=== PATIENT | male | born 1950 | race African-American/Black ===

== ENCOUNTER 2017-04-11 02:50 | Emergency (ER) | payer OTHER ==
[~2017-04-11] VITALS: Ht 182.9 cm; Wt 84.4 kg
[~2017-04-11 02:50] MED LIST: CHLO25TA PO; CYAN100028 PO; INSU100C5 SQ-INSULIN; INSU100I18 SC; LISI40TA PO; METF500T4 PO; TAMS0.4C2 PO; WARF5TAB PO
[2017-04-11] MEDS ORDERED: SODIUM CHLORIDE 0.9% 1,000ML IVBOLUS ONE (03:30)
[2017-04-11] MEDS ORDERED: ONDANSETRON 2MG/ML, 2ML IVPush ONE (03:30)
[2017-04-11] MEDS ORDERED: ONDANSETRON 2MG/ML, 2ML ONE (03:31)
[2017-04-11 03:53] LABS: ASPARTATE AMINO TRANSFERASE 25 U/L (15-37); BLOOD UREA NITROGEN 12 mg/dL (7-18)
[2017-04-11] MEDS ORDERED: LIDOCAINE 1%, 20ML ONE (03:55)
[2017-04-11] MEDS ORDERED: BACITRACIN ZINC OINT 500U/GM, 0.9 GM ONE (04:56)
[2017-04-11 06:14] VITALS: BP 130/75
== END 2017-04-11 06:17 | disposition home or self-care (01) ==
LOC: ED 03:46
DX: A09 Infectious gastroenteritis and colitis, unspecified (principal); E11.9 Type 2 diabetes mellitus without complications; I10 Essential (primary) hypertension; I25.2 Old myocardial infarction; Z86.73 Personal history of transient ischemic attack (TIA), and cerebral infarction without residual deficits
CPT/HCPCS: 36415; 73502; 80053; 81001; 83690; 85025; 93005; 96361; 96374; 99285; J2405; J7030